=== PATIENT | female | born 1985 | race Caucasian/White ===

== ENCOUNTER 2017-03-09 10:47 | Inpatient (IN) | payer OTHER ==
[~2017-03-09] VITALS: Ht 167.6 cm; Wt 76.3 kg
[2017-03-09 11:04] VITALS: Ht 167.6 cm; Wt 76.3 kg
[2017-03-09 11:05] VITALS: BP 137/78; PULSE 105; RESP 20
[2017-03-09] MEDS ORDERED: CARBOPROST 250 MCG INJ IM PRN (12:30)
[2017-03-09] MEDS ORDERED: METHYLERGONOVINE 0.2 MG INJ IM PRN (12:30)
[2017-03-09] MEDS ORDERED: MISOPROSTOL 200 MCG TAB PR PRN (12:30)
[2017-03-09] MEDS ORDERED: IBUPROFEN 600 MG TAB PO PRN (12:30)
[2017-03-09] MEDS ORDERED: BUTORPHANOL 2 MG INJ IV PRN (12:30)
[2017-03-09] MEDS ORDERED: AMPICILLIN 2 GM/NS (PMX) 100 ML IV ONE (12:30)
[2017-03-09] MEDS ORDERED: OXYTOCIN 30 UNITS/LR 500 ML IV SCH ×3 (12:30→15:30)
[2017-03-09] MEDS ORDERED: OXYTOCIN 30 UNITS/LR 500 ML IV PRN (12:30)
[2017-03-09] MEDS ORDERED: LIDOCAINE 1% (MPF) 30 ML INJ INJ PRN (12:30)
[2017-03-09] MEDS ORDERED: HYDROCODONE/APAP (5/325) TAB PO PRN (12:30)
[2017-03-09] MEDS: LACTATED RINGER'S 1,000 ML IV SCH ×3 (12:36→20:27)
[2017-03-09 12:59] LABS: BASOPHILS % 0.2 % (0.0-2.0); EOSINOPHILS % 0.2 % (0.0-7.0); HEMATOCRIT 37.9 % (37.0-47.0); HEMOGLOBIN 13.1 g/dl (12.0-16.0); LYMPHOCYTES # 1.3 10^3/ul (0.8-2.9); LYMPHOCYTES % 9.9 % (15.0-51.0); MEAN CORPUSCULAR HEMOGLOBIN 32.8 pg (29.0-33.0); MEAN CORPUSCULAR HGB CONC 34.6 g/dl (32.0-37.0); MEAN PLATELET VOLUME 10.5 fl (7.4-10.4); MONOCYTE # 0.8 10^3/ul (0.3-0.9); MONOCYTES % 6.1 % (0.0-11.0); NEUTROPHIL # 10.5 10^3/ul (1.6-7.5); NEUTROPHILS % 82.7 % (39.0-77.0); PLATELET COUNT 236 10^3/UL (140-415); RED BLOOD COUNT 3.99 10^6/ul (4.20-5.40); RED CELL DISTRIBUTION WIDTH 14.2 % (11.5-14.5); WHITE BLOOD COUNT 12.7 10^3/ul (4.8-10.8)
[2017-03-09 13:26] LABS: INR 0.9; PROTIME 12.2 Sec (11.9-14.9)
[2017-03-09 13:27] LABS: PARTIAL THROMBOPLASTIN TIME 27.4 Sec (25.0-35.0)
--- NOTE | 2017-03-09 13:38 | RADRPT ---
PROCEDURE: Obstetrical ultrasound. CLINICAL INDICATION: , evaluation. Pelvic pain. Spontaneous rupture of membranes TECHNIQUE: Transabdominal sonographic images of the uterus obtained after first trimester , greater than 14 weeks gestation. Single intrauterine gestation present. COMPARISON: No prior studies are available for comparison. FINDINGS: Single intrauterine gestation. There is a cephalic presentation. Measurements were made in order to determine age. The results are as follows: BPD = 37 weeks 1 day(s) HC = 37 weeks 5 day(s) AC = 38 weeks 3 day(s) FL = 36 weeks 3 day(s) YARIEL = not measured Heart rate = 142 beats per minute The placenta is anterior. There is no evidence for an abruption or placenta previa. Ovaries are not visualized. IMPRESSION: Single intrauterine gestation of approximately 37 weeks 3 days by ultrasound criteria. [place] estimated weight = 3291 g; 52 percentile for gestational age of 38 weeks 1 days. RPTAT: AADD .Deo Corey MD, MD Date Time Electronically viewed and signed by .Deo oCrey MD, on 03/09/2017 13:38 .B/
--- NOTE | 2017-03-09 13:39 | RADRPT ---
PROCEDURE: Obstetrical ultrasound for biophysical profile CLINICAL INDICATION: Biophysical profile. . Spontaneous rupture of membranes TECHNIQUE: Obstetrical ultrasound of the uterus for biophysical profile. Transabdominal views are obtained. COMPARISON: None FINDINGS: Single intrauterine gestation. Presentation: Cephalic. Placenta: Anterior. No evidence of placental abruption. No evidence of placenta previa. breathing movement = 2/2 tone = 2/2 motion = 2/2 YARIEL = 2/2 YARIEL = 8.5 cm heart rate: 156 beats per minute IMPRESSION: Single intrauterine gestation. Biophysical profile 11/02 RPTAT: AADD .Deo Corey MD, MD Date Time Electronically viewed and signed by .Deo Corey MD, on 03/09/2017 13:38 .B/
[2017-03-09] MEDS: AMPICILLIN 1 GM/NS (PMX) 50 ML IV SCH ×2 (16:41→20:58)
[2017-03-09] MEDS ORDERED: FENTAnyl 2MCG/ML-ROPIV 0.2% 100 ML ONE (20:40)
--- NOTE | 2017-03-09 20:59 | HP ---
Date/Time of Note Date/Time of Note DATE: 03/09/17 TIME: 20:58 OB - History Hx of Present Chief Complaint: SROM Estimated Due Date: Mar 22, 2017 : 4 Para: 0 Spontaneous : 0 Therapeutic : 3 Care: Good Care Ultrasounds: Normal mid trimester US Obstetrical Complications: None Medical Complications: None Past Family/Social History * Past Medical, Surgical, Family and Obstetric Histories reviewed from chart. GBS Status: Positive OB Admission Exam Vital Signs Vital Signs Vital Signs Date Time Temp Pulse Resp B/P Pulse Ox O2 Delivery O2 Flow Rate FiO2 03/09/17 11:05 97.1 105 20 137/78 Room Air Physical Exam HEENT: WNL Heart: Rhythm Normal Lungs: Clear, Equal Abdomen: WNL Extremities: Normal Reflexes: Normal Cervical Dilatation: 2cm Effacement: 50% Station: -1 Membranes: Ruptured Amniotic Fluid: Clear Heart Rate: 120's Accelerations: Accelerations Present Decelerations: No Decelerations Varibility: Moderate Last 72 hours Lab Results CBC & BMP 03/09/17 12:32 OB Assessment/Plan Reason for admission: rupture of membranes Plan: Induction Induction Method: per Pitocin Protocol NABILA SWETE MD Mar 09, 2017 20:59
[2017-03-09] MEDS ORDERED: NALOXONE (0.4 MG/ML) INJ IV PRN (22:00)
[2017-03-09] MEDS ORDERED: ONDANSETRON 4 MG INJ IV PRN (22:00)
[2017-03-09] MEDS ORDERED: DIPHENHYDRAMINE 50 MG INJ IV PRN (22:00)
[2017-03-10] MEDS: AMPICILLIN 1 GM/NS (PMX) 50 ML IV SCH ×6 (00:37→23:27)
[2017-03-10] MEDS: FENTAnyl 2MCG/ML-ROPIV 0.2% 100 ML BAG EPI SCH ×4 (02:15→23:24)
[2017-03-10] MEDS: LACTATED RINGER'S 1,000 ML IV SCH ×4 (05:35→22:08)
--- NOTE | 2017-03-10 23:27 | LDN ---
Date/Time of Note Date/Time of Note DATE: 03/10/17 TIME: 23:24 Delivery Summary Weeks of Gestation 38 weeks and 2 days Placenta Delivered: Spontaneously Meconium: none Episiotomy: No Perineal laceration: 1 Laceration repair: Second degree laceration repaired with 3-0 Vicryl and 3-0 chromic Anesthesia type: Epidural Estimated blood loss: 200 Sponge & Needle done & correct: Yes All needle counts correct: Yes Any foreign bodies felt in the: No Problems: Infant Delivery Information Sex Infant Sex: female Apgars 1 Minute: 8 5 Minute: 9 Suctioning Nose & mouth suctioned at arian: Yes Delee suction performed: Yes Umbilical Cord Umbilical cord with: 3 Vessels Cord presentations: nuchal cord Nuchal cord present X: 1 Cord Blood was obtained: Yes Mother & Baby Disposition Disposition Mom & Baby to Maternity; Good: Yes NABILA SWEET MD Mar 10, 2017 23:27
[2017-03-11] MEDS: AMPICILLIN 1 GM/NS (PMX) 50 ML IV SCH (00:30)
[2017-03-11] MEDS ORDERED: OXYCODONE/ACETAMINOPHEN (5/325) TAB ONE (00:48)
[2017-03-11] MEDS ORDERED: OXYCODONE/ACETAMINOPHEN (5/325) TAB PO ONE (01:00)
[2017-03-11 02:00] VITALS: BP 116/71; PULSE 76; RESP 18
[2017-03-11] MEDS ORDERED: LACTATED RINGER'S 1,000 ML IV* SCH (02:13)
[2017-03-11] MEDS ORDERED: OXYTOCIN 30 UNITS/LR 500 ML IV PRN (02:30)
[2017-03-11] MEDS ORDERED: METHYLERGONOVINE 0.2 MG INJ IM PRN (02:30)
[2017-03-11] MEDS ORDERED: BENZOCAINE 20% 56 ML SPRAY TOP PRN (02:30)
[2017-03-11] MEDS ORDERED: ACETAMINOPHEN 325 MG TAB PO PRN (02:30)
[2017-03-11] MEDS ORDERED: CARBOPROST 250 MCG INJ IM PRN (02:30)
[2017-03-11] MEDS ORDERED: MISOPROSTOL 200 MCG TAB PR PRN (02:30)
[2017-03-11] MEDS ORDERED: DIBUCAINE 1% 30 GM OINT PR PRN (02:30)
[2017-03-11] MEDS ORDERED: WITCH HAZEL/GLYCERIN PAD PR PRN (02:30)
[2017-03-11 04:17] VITALS: BP 106/65; PULSE 74; RESP 18
[2017-03-11] MEDS: HYDROCODONE/APAP (5/325) TAB PO PRN ×3 (04:17→16:25)
[2017-03-11] MEDS: IBUPROFEN 600 MG TAB PO SCH ×4 (05:58→18:00)
[2017-03-11 08:00] VITALS: BP 95/54; PULSE 77; RESP 19
[2017-03-11] MEDS: SENNA/DOCUSATE NA (8.6MG/50MG) TAB PO SCH ×2 (09:16→21:56)
[2017-03-11 10:43] LABS: BASOPHILS % 0.2 % (0.0-2.0); EOSINOPHILS % 0.2 % (0.0-7.0); HEMATOCRIT 32.5 % (37.0-47.0); HEMOGLOBIN 10.9 g/dl (12.0-16.0); LYMPHOCYTES # 1.2 10^3/ul (0.8-2.9); LYMPHOCYTES % 6.9 % (15.0-51.0); MEAN CORPUSCULAR HEMOGLOBIN 32.2 pg (29.0-33.0); MEAN CORPUSCULAR HGB CONC 33.5 g/dl (32.0-37.0); MEAN CORPUSCULAR VOLUME 96.2 fl (82.0-101.0); MEAN PLATELET VOLUME 10.7 fl (7.4-10.4); MONOCYTE # 1.1 10^3/ul (0.3-0.9); MONOCYTES % 6.1 % (0.0-11.0); NEUTROPHIL # 14.7 10^3/ul (1.6-7.5); NEUTROPHILS % 85.7 % (39.0-77.0); PLATELET COUNT 188 10^3/UL (140-415); RED BLOOD COUNT 3.38 10^6/ul (4.20-5.40); RED CELL DISTRIBUTION WIDTH 13.9 % (11.5-14.5); WHITE BLOOD COUNT 17.1 10^3/ul (4.8-10.8)
[2017-03-11 16:00] VITALS: BP 93/71; PULSE 74; RESP 18
[2017-03-11 20:00] VITALS: BP 97/56; PULSE 72; RESP 18
--- NOTE | 2017-03-11 20:43 | QN ---
Documentation Comment Nocomplaint Afebrile VSS Fundus firm lOCHIA SCANT ppd #1 Stable Continue present care. NABILA SWEET MD Mar 11, 2017 20:43
[2017-03-11] MEDS: FERROUS SULFATE (EC) 325 MG TAB PO SCH (21:56)
[2017-03-12] MEDS: IBUPROFEN 600 MG TAB PO SCH ×4 (00:22→17:42)
[2017-03-12 04:00] VITALS: BP 101/50; PULSE 67; RESP 18
[2017-03-12 08:00] VITALS: BP 105/64; PULSE 68; RESP 20
[2017-03-12] MEDS ORDERED: DIPHTH/TET/ACEL PERTUSS (ADULT) 0.5 ML VIAL IM* ONE (09:00)
[2017-03-12] MEDS: FERROUS SULFATE (EC) 325 MG TAB PO SCH (10:05)
[2017-03-12] MEDS: SENNA/DOCUSATE NA (8.6MG/50MG) TAB PO SCH (10:05)
[2017-03-12 10:53] LABS: BASOPHILS % 0.2 % (0.0-2.0); EOSINOPHILS # 0.1 10^3/ul (0.0-0.5); EOSINOPHILS % 0.9 % (0.0-7.0); HEMATOCRIT 32.5 % (37.0-47.0); HEMOGLOBIN 10.9 g/dl (12.0-16.0); LYMPHOCYTES % 8.8 % (15.0-51.0); MEAN CORPUSCULAR HEMOGLOBIN 32.5 pg (29.0-33.0); MEAN CORPUSCULAR HGB CONC 33.5 g/dl (32.0-37.0); MEAN PLATELET VOLUME 10.1 fl (7.4-10.4); MONOCYTE # 0.7 10^3/ul (0.3-0.9); MONOCYTES % 5.6 % (0.0-11.0); NEUTROPHIL # 9.9 10^3/ul (1.6-7.5); NEUTROPHILS % 83.5 % (39.0-77.0); PLATELET COUNT 188 10^3/UL (140-415); RED BLOOD COUNT 3.35 10^6/ul (4.20-5.40); RED CELL DISTRIBUTION WIDTH 14.1 % (11.5-14.5); WHITE BLOOD COUNT 11.8 10^3/ul (4.8-10.8)
--- NOTE | 2017-03-12 14:39 | DS ---
Date/Time of Note Date/Time of Note DATE: 03/12/17 TIME: 14:38 Obstetrical Discharge Record Final Diagnosis Final Diagnosis: Term delivered Vaginal Delivery Obstetrical Delivery: Spontaneous Condition on Discharge Physical Assessment Voiding: Yes Bowel Movement: Yes Breast: Soft, non-tender, Filling Fundus: Firm Calf Tenderness: No Patient Condition: Stable NABILA SWEET MD Mar 12, 2017 14:39
[2017-03-12 16:00] VITALS: BP 110/64; PULSE 72; RESP 18
[2017-03-13] MEDS ORDERED: INFLUENZA VIRUS VACCINE 0.5 ML (DISPENSING) IM* ONE (09:00)
== END 2017-03-12 18:20 | disposition home or self-care (01) | DRG 775 ==
LOC: L-D 10:47 → OBT 10:47 → L-D 12:00 → OBT 12:32 → PP1 03-11 02:01
PROVIDERS: ADMIT Obstetrics & Gynecology; ATTEND Obstetrics & Gynecology
PROC: 10E0XZZ Delivery of Products of Conception, External Approach (ICD-10-PCS; principal; 2017-03-09)
PROC: 0KQM0ZZ Repair Perineum Muscle, Open Approach (ICD-10-PCS; 2017-03-09)
DX: O69.81X0 Labor and delivery complicated by cord around neck, without compression, not applicable or unspecified (principal); O70.1 Second degree perineal laceration during delivery; Z37.0 Single live birth; Z3A.28 28 weeks gestation of pregnancy
CPT/HCPCS: 62319; 76815; 76818; 84112; 85025; 85610; 85730; 86592; 86850; 86900; 86901; 87340; 90715; 99464; G0463; J0290; J2590; J3010; J7120